=== PATIENT | male | born 1955 | race Caucasian/White ===

== ENCOUNTER → 2017-11-27 | Outpatient (CLI) | payer BC | END | disposition home or self-care (01) | LOC: CFH 08:45 | PROVIDERS: ATTEND Physician Assistant Medical | DX: K82.4 Cholesterolosis of gallbladder (principal); K21.9 Gastro-esophageal reflux disease without esophagitis | CPT/HCPCS: 76700 ==

== ENCOUNTER → 2018-12-10 | Outpatient (CLI) | payer BC | END | disposition home or self-care (01) | LOC: EDSTATUS 12-03 10:45 → CFH 08:27 → EDSTATUS 08:45 | PROVIDERS: ATTEND Physician Assistant Medical | DX: K82.4 Cholesterolosis of gallbladder (principal); Z88.8 Allergy status to other drugs, medicaments and biological substances | CPT/HCPCS: 76700 ==